=== PATIENT | female | born 1955 | race African-American/Black ===

== ENCOUNTER → 2020-01-16 | Day surgery (SDC) | payer OTHER ==
[2020-01-13 18:22] LABS: PLATELET COUNT 301 x10^3mcL (130-400); RED CELL DISTRIBUTION WIDTH 14.1 % (11.5-14.5)
[2020-01-13 18:24] LABS: BASOPHIL % 2.5 % (0-2)
[2020-01-13 19:00] LABS: ALBUMIN 3.5 g/dL (3.4-5.0); BILIRUBIN TOTAL 0.2 mg/dL (0.20-1.00); CARBON DIOXIDE 20.9 mmol/L (21-32); CREATININE SERUM 3.7 mg/dL (0.6-1.0); TOTAL PROTEIN, SERUM 8.2 g/dL (6.4-8.2)
[~2020-01-16] VITALS: Ht 165.1 cm; Wt 73.0 kg
[2020-01-16 08:09] LABS: CALCIUM 9.1 mg/dL (8.5-10.1); CARBON DIOXIDE 22.3 mmol/L (21-32); CREATININE SERUM 3.6 mg/dL (0.6-1.0); POTASSIUM SERUM 4.2 mmol/L (3.5-5.1)
[2020-01-16 08:31] VITALS: BP 151/87
[2020-01-16 14:07] VITALS: BP 163/83
== END | disposition home or self-care (01) ==
LOC: DS 07:07 → OR 10:30
PROVIDERS: Surgery
DX: D50.9 Iron deficiency anemia, unspecified (principal); K64.4 Residual hemorrhoidal skin tags; K57.30 Diverticulosis of large intestine without perforation or abscess without bleeding; K63.89 Other specified diseases of intestine
CPT/HCPCS: 45378; J1200; J1610; J2250; J2310; J3010; J3490